=== PATIENT | male | born 2000 | race Hispanic/Latino ===

== ENCOUNTER 2019-10-17 07:45 | Day surgery (SDC) | payer OTHER ==
[2019-10-14 12:05] VITALS: BP 106/78
[2019-10-14 12:46] LABS: BASOPHILS % (AUTO) 0.2 % (0.0-5.0); HEMATOCRIT 47.2 % (42-54); LYMPHOCYTES % (AUTO) 27.8 % (21.0-51.0); MEAN CORPUSCULAR HEMOGLOBIN 30.3 pg (27.0-33.0); MEAN CORPUSCULAR HGB CONC 33.3 g/dL (32.0-36.0); MEAN CORPUSCULAR VOLUME 91.1 fL (80-100); MONOCYTES % (AUTO) 7.1 % (3.0-13.0); NEUTROPHILS % (AUTO) 63.8 % (40.0-77.0); PLATELET COUNT (AUTO) 288 K/uL (130-400); RED BLOOD CELL COUNT(AUTO) 5.18 MIL/uL (4.50-6.20); RED CELL DISTRIBUTION WIDTH 12.9 % (11.0-15.5); WHITE BLOOD COUNT (AUTO) 8.6 K/uL (4.8-10.8)
[2019-10-14 13:40] LABS: ALBUMIN 3.9 g/dL (3.5-5.0); BILIRUBIN,DIRECT 0.1 mg/dL (0.0-0.3); BILIRUBIN,TOTAL 0.5 mg/dL (0.2-1.0); TOTAL PROTEIN, SERUM 7.5 g/dL (6.0-8.3)
[2019-10-17] VITALS (16 sets, daily range): BP systolic 117–139; BP diastolic 59–83
[~2019-10-17] VITALS: Ht 177.8 cm; Wt 112.1 kg
[~2019-10-17 07:45] MED LIST: HYOS-27 SL
[2019-10-17] MEDS: LACTATED RINGERS 1000ML 1,000 ML IV SCH ×2 (08:12→11:55)
[2019-10-17] MEDS ORDERED: LIDOCAINE PF 2% 5ML ABBOJECT ONE (10:00)
[2019-10-17] MEDS ORDERED: PROPOFOL 10 MG/ML 20ML VIAL IV ONE (10:01)
[2019-10-17] MEDS ORDERED: MIDAZOLAM HCL 1 MG/ML 2ML VIAL ONE (10:01)
[2019-10-17] MEDS ORDERED: ROCURONIUM 10MG/1ML SYR 10 MG/ML ML ONE (10:01)
[2019-10-17] MEDS ORDERED: FENTANYL CITRATE PF 50 MCG/1 ML 2ML VIAL ONE ×3 (10:01→11:39)
[2019-10-17] MEDS ORDERED: ONDANSETRON HCL 4 MG/2 ML VIAL ONE (10:42)
[2019-10-17] MEDS ORDERED: DEXAMETHASONE SOD PHOSPHATE 10MG/ML 1ML VIAL ONE (10:42)
[2019-10-17] MEDS ORDERED: GLYCOPYRROLATE 1 MG/5 ML SYRINGE ONE (10:43)
[2019-10-17] MEDS ORDERED: NEOSTIGMINE 5MG/5ML SYR IV ONE (10:43)
[2019-10-17] MEDS ORDERED: HEPARIN SODIUM 1000UNIT/ML 10ML VIAL ONE (10:54)
[2019-10-17] MEDS ORDERED: MEPERIDINE-PF 25 MG/ML SYG ONE (11:40)
[2019-10-17] MEDS ORDERED: KETOROLAC TROMETHAMINE 30MG/ML ONE (11:42)
--- NOTE | 2019-10-17 13:00 | NUR ---
PATIENT ARRIVED PATIENT BROUGHT TO DAY PATIENT VIA STRETCHER BY DANILO CALLAHAN. PATIENT [id number], RESPIRATIONS UNLABORED, VITAL SIGNS STABLE, DENIES ANY PAIN AT THIS TIME. DRESSINGS X 4 (BANDAIDS) TO MID ABDOMEN, DRY AND INTACT.
--- NOTE | 2019-10-17 13:15 | NUR ---
DISCHARGE INSTRUCTIONS PROVIDED TO PATIENT'S MOTHER. FOLLOW UP APPOINTMENTS AND PRESCRIPTION PROVIDED. INSTRUCTED TO LEAVE STERI STRIPS/BANDAIDS IN PLACE UNTIL SEEN BY DR MEDINA IN THE MORNING. INSTRUCTION ON [facility] PROVIDED AND EXPLAINED, ALL QUESTIONS/CONCERNS ADDRESSED. PATIENT'S MOTHER VERBALIZED UNDERSTANDING.
--- NOTE | 2019-10-17 13:45 | NUR ---
PATIENT DISCHARGED FROM FACILITY VIA WHEELCHAIR BY NURSE. PATIENT ASSISTED INTO PRIVATE VEHICLE DRIVEN BY PATIENT'S MOTHER.
== END 2019-10-17 13:45 | disposition home or self-care (01) ==
LOC: DAH 07:45 → EDSEX 11:00 → DAH 13:45
PROVIDERS: ATTEND Surgery
DX: K80.10 Calculus of gallbladder with chronic cholecystitis without obstruction (principal); E66.01 Morbid (severe) obesity due to excess calories; Z68.34 Body mass index [BMI] 34.0-34.9, adult
CPT/HCPCS: 36415; 47562; 80076; 85025; A4215; A4221; A4222; A4223; A4450; A4600; A4663; A6260; C1769 ×4; J1100; J1644; J1885; J2001; J2175; J2250; J2405; J2704; J2710; J3010 ×3; J3490; J7030; J7120 ×2